=== PATIENT | female | born 1970 | race Hispanic/Latino ===

== ENCOUNTER 2021-06-29 14:09 | Emergency (ER) | payer OTHER ==
[~2021-06-29] VITALS: Ht 165.1 cm; Wt 77.1 kg
[2021-06-29 14:32] LABS: HEMATOCRIT 38.3 % (36-48); LYMPHOCYTES % (AUTO) 24.4 % (21.0-51.0); MEAN CORPUSCULAR HEMOGLOBIN 28.6 pg (27.0-33.0); MEAN CORPUSCULAR HGB CONC 32.9 g/dL (32.0-36.0); NEUTROPHILS % (AUTO) 66.3 % (40.0-77.0); PLATELET COUNT (AUTO) 320 K/uL (130-400); RED CELL DISTRIBUTION WIDTH 16.3 % (11.0-15.5); WHITE BLOOD COUNT (AUTO) 9.5 K/uL (4.8-10.8)
[2021-06-29 14:41] LABS: CREATININE 0.8 mg/dL (0.5-1.5); POTASSIUM 3.6 mmol/L (3.5-5.1)
[2021-06-29 14:45] LABS: ALBUMIN 3.4 g/dL (3.5-5.0); BILIRUBIN,TOTAL 0.3 mg/dL (0.2-1.0); TOTAL PROTEIN, SERUM 7.7 g/dL (6.0-8.3)
[2021-06-29] MEDS ORDERED: MORPHINE 2 MG SYG ONE (16:19)
[2021-06-29] MEDS ORDERED: ONDANSETRON 4MG INJ ONE (16:19)
[2021-06-29] MEDS ORDERED: ONDANSETRON 4MG INJ IVP ONE (16:30)
[2021-06-29] MEDS ORDERED: IOHEXOL-350 75 ML VIAL IV ONE (16:34)
[2021-06-29] MEDS ORDERED: METH4TAB3 PO (18:53)
[2021-06-29 18:56] VITALS: BP 143/53
== END 2021-06-29 19:09 | disposition home or self-care (01) ==
LOC: EDH 14:09
DX: M94.0 Chondrocostal junction syndrome [Tietze] (principal); R09.1 Pleurisy; R11.2 Nausea with vomiting, unspecified; R20.0 Anesthesia of skin
CPT/HCPCS: 36415; 71275; 80053; 84484; 85025; 93005; 96374; 96375; 99285; J2405; Q9967

== ENCOUNTER 2022-10-06 12:22 | Emergency (ER) | payer OTHER ==
[~2022-10-06] VITALS: Ht 165.1 cm; Wt 56.7 kg
[~2022-10-06 12:22] MED LIST: METH4TAB3 PO
[2022-10-06 12:59] LABS: EOSINOPHILS % (AUTO) 6.3 % (0.0-8.0); HEMATOCRIT 38.5 % (36-48); LYMPHOCYTES % (AUTO) 41.9 % (21.0-51.0); MEAN CORPUSCULAR HEMOGLOBIN 26.8 pg (27.0-33.0); MEAN CORPUSCULAR HGB CONC 32.7 g/dL (32.0-36.0); MEAN CORPUSCULAR VOLUME 81.9 fL (79-99); MONOCYTES % (AUTO) 6.2 % (3.0-13.0); NEUTROPHILS % (AUTO) 44.2 % (40.0-77.0); PLATELET COUNT (AUTO) 278 K/uL (130-400); RED CELL DISTRIBUTION WIDTH 17.3 % (11.0-15.5); WHITE BLOOD COUNT (AUTO) 8.2 K/uL (4.8-10.8)
[2022-10-06 13:12] LABS: ALBUMIN 3.5 g/dL (3.5-5.0); TOTAL PROTEIN, SERUM 7.8 g/dL (6.0-8.3)
[2022-10-06] MEDS ORDERED: POTASSIUM BICARB/CIT AC 25 MEQ TABLET.EFF PO ONE (14:00)
[2022-10-06 15:39] LABS: AMPHET/METH SCREEN,URINE NEGATIVE (NEGATIVE); BARBITURATE SCREEN, URINE NEGATIVE (NEGATIVE); BENZODIAZEPINES SCREEN,URINE NEGATIVE (NEGATIVE); CANNABINOID SCREEN,URINE NEGATIVE (NEGATIVE); COCAINE SCREEN,URINE POSITIVE (NEGATIVE); OPIATE SCREEN,URINE NEGATIVE (NEGATIVE); PHENCYCLIDINE SCREEN,URINE NEGATIVE (NEGATIVE)
[2022-10-06 15:42] VITALS: BP 141/59
[2022-10-06 16:43] LABS: APPEARANCE,URINE CLEAR (CLEAR); BILIRUBIN,URINE NEGATIVE (NEGATIVE); COLOR,URINE YELLOW (YELLOW); GLUCOSE, URINE (UA) NEGATIVE (NEGATIVE); KETONES,URINE NEGATIVE (NEGATIVE); LEUKOCYTE ESTERASE ,URINE NEGATIVE Leu/uL (NEGATIVE); NITRATE,URINE NEGATIVE (NEGATIVE); OCCULT BLOOD,URINE NEGATIVE (NEGATIVE); PH,URINE 5.5 (5.0-8.0); PROTEIN,URINE NEGATIVE (NEGATIVE); UROBILINOGEN,URINE 0.2 mg/dL (0.2-1.0)
[2022-10-06 16:53] LABS: RBC,URINE 0-1 /HPF (0-1); SQUAMOUS EPITHELIAL CELL,UR FEW /HPF (0-2); WBC,URINE 0-1 /HPF (0-1)
== END 2022-10-06 17:16 | disposition home or self-care (01) ==
LOC: EDH 12:22
DX: M94.0 Chondrocostal junction syndrome [Tietze] (principal); F14.10 Cocaine abuse, uncomplicated; E87.6 Hypokalemia; Z79.899 Other long term (current) drug therapy
CPT/HCPCS: 36415; 71045; 80053; 80305; 81001; 84484; 85025; 93005

== ENCOUNTER 2023-01-21 17:58 | Inpatient (IN) | payer OTHER ==
[~2023-01-21] VITALS: Ht 165.1 cm; Wt 64.6 kg
[2023-01-21 19:58] LABS: BASOPHILS % (AUTO) 0.7 % (0.0-5.0); HEMATOCRIT 39.2 % (36-48); LYMPHOCYTES % (AUTO) 20.1 % (21.0-51.0); MEAN CORPUSCULAR HEMOGLOBIN 26.8 pg (27.0-33.0); MEAN CORPUSCULAR HGB CONC 31.9 g/dL (32.0-36.0); MEAN CORPUSCULAR VOLUME 84.1 fL (79-99); NEUTROPHILS % (AUTO) 69.9 % (40.0-77.0); PLATELET COUNT (AUTO) 248 K/uL (130-400); RED BLOOD CELL COUNT(AUTO) 4.66 MIL/uL (4.00-5.50); RED CELL DISTRIBUTION WIDTH 17.2 % (11.0-15.5); WHITE BLOOD COUNT (AUTO) 6.9 K/uL (4.8-10.8)
[2023-01-21 20:07] LABS: POTASSIUM 3.1 mmol/L (3.5-5.1)
[2023-01-21 20:11] LABS: ALBUMIN 3.4 g/dL (3.5-5.0); TOTAL PROTEIN, SERUM 7.3 g/dL (6.0-8.3)
[2023-01-21 20:24] LABS: INR 0.97 (0.85-1.15); PROTHROMBIN TIME 10.6 SEC (9.6-11.6)
[2023-01-21 20:26] LABS: PARTIAL THROMBOPLASTIN TIME 26.2 SEC (26.3-35.5)
[2023-01-21 20:28] LABS: B-TYPE NATRIURETIC PEPTIDE 15 pg/mL (0-100)
[2023-01-21] MEDS ORDERED: POTASSIUM CHLORIDE 10% ELIXIR 20 MEQ/15 ML UDCUP PO ONE (21:00)
[2023-01-21] MEDS ORDERED: ONDANSETRON 4MG INJ IV PRN (21:30)
[2023-01-21] MEDS ORDERED: MORPHINE 4 MG SYG IV PRN (21:30)
[2023-01-21] MEDS ORDERED: MORPHINE 2 MG SYG IV PRN (21:30)
[2023-01-21] MEDS ORDERED: POTASSIUM CHLORIDE 20MEQ/100ML 100 ML IV PRN (21:30)
[2023-01-21] MEDS ORDERED: ACETAMINOPHEN 325 MG TAB PO PRN ×2 (21:30)
[2023-01-21] MEDS ORDERED: POTASSIUM CHLORIDE 10% ELIXIR 20 MEQ/15 ML UDCUP PO PRN (21:30)
[2023-01-21] MEDS: LACTATED RINGERS 1000ML 1,000 ML IV SCH (22:26)
[2023-01-21 23:49] LABS: APPEARANCE,URINE CLEAR (CLEAR); BILIRUBIN,URINE NEGATIVE (NEGATIVE); COLOR,URINE YELLOW (YELLOW); GLUCOSE, URINE (UA) NEGATIVE (NEGATIVE); KETONES,URINE NEGATIVE (NEGATIVE); LEUKOCYTE ESTERASE ,URINE 75 Leu/uL (NEGATIVE); NITRATE,URINE NEGATIVE (NEGATIVE); OCCULT BLOOD,URINE NEGATIVE (NEGATIVE); PROTEIN,URINE 10 mg/dL (NEGATIVE); UROBILINOGEN,URINE 0.2 mg/dL (0.2-1.0)
[2023-01-21 23:57] LABS: BACTERIA,URINE RARE /HPF (None Seen); MUCUS,URINE RARE LPF (None Seen); SQUAMOUS EPITHELIAL CELL,UR FEW /HPF (0-2)
[2023-01-22 00:45] VITALS: BP 159/74
[2023-01-22 04:00] VITALS: BP 152/99
[2023-01-22 05:27] LABS: BASOPHILS % (AUTO) 1.1 % (0.0-5.0); EOSINOPHILS % (AUTO) 3.1 % (0.0-8.0); HEMATOCRIT 36.4 % (36-48); LYMPHOCYTES % (AUTO) 38.7 % (21.0-51.0); MEAN CORPUSCULAR HEMOGLOBIN 26.5 pg (27.0-33.0); MEAN CORPUSCULAR HGB CONC 31.6 g/dL (32.0-36.0); MEAN CORPUSCULAR VOLUME 83.9 fL (79-99); MONOCYTES % (AUTO) 8.9 % (3.0-13.0); NEUTROPHILS % (AUTO) 47.7 % (40.0-77.0); PLATELET COUNT (AUTO) 247 K/uL (130-400); RED BLOOD CELL COUNT(AUTO) 4.34 MIL/uL (4.00-5.50); RED CELL DISTRIBUTION WIDTH 16.9 % (11.0-15.5); WHITE BLOOD COUNT (AUTO) 6.4 K/uL (4.8-10.8)
[2023-01-22 05:53] LABS: CREATININE 0.8 mg/dL (0.5-1.5); MAGNESIUM 1.6 mg/dL (1.80-2.40); PHOSPHORUS 3.5 mg/dL (2.5-4.9); POTASSIUM 3.8 mmol/L (3.5-5.1); THYROID STIMULATING HORMONE 0.54 uIU/mL (0.36-3.74)
[2023-01-22] MEDS: MAGNESIUM 2GM PREMIX 50ML 50 ML IV PRN (06:00)
[2023-01-22 08:00] VITALS: BP 162/97
[2023-01-22] MEDS: ASPIRIN 81MG CHEW TAB PO SCH (09:21)
[2023-01-22] MEDS: ENOXAPARIN SODIUM 40 MG/0.4 ML SYRINGE SQ SCH (09:22)
[2023-01-22] MEDS: CLOPIDOGREL 75MG TAB PO SCH (09:22)
[2023-01-22] MEDS: FAMOTIDINE 20MG VIAL IV SCH ×2 (09:22→20:19)
[2023-01-22] MEDS ORDERED: FOLIC ACID 1 MG, THIAMINE HCL 100 MG in 0.9%NACL 1000ML 1,000 ML IV SCH (10:30)
[2023-01-22 12:00] VITALS: BP 145/76
[2023-01-22] MEDS ORDERED: LORAZEPAM 2 MG/ML 1 ML VIAL IVP PRN (12:30)
[2023-01-22] MEDS ORDERED: PHARMACY COMMUNICATION MISC PRN (12:30)
[2023-01-22] MEDS: CHLORDIAZEPOXIDE HCL 25 MG CAP PO PRN (12:52)
[2023-01-22 16:00] VITALS: BP 136/78
[2023-01-22] MEDS: LACTATED RINGERS 1000ML 1,000 ML IV SCH ×2 (17:27→20:27)
[2023-01-22 20:00] VITALS: BP 149/73
[2023-01-22] MEDS ORDERED: ATORVASTATIN 40 MG TABLET PO SCH (21:00)
[2023-01-23] VITALS: BP 186/73
[2023-01-23] MEDS: CHLORDIAZEPOXIDE HCL 25 MG CAP PO PRN ×3 (00:38→08:35)
[2023-01-23 02:19] VITALS: BP 173/73
[2023-01-23 04:00] VITALS: BP 176/83
[2023-01-23 04:38] LABS: BASOPHILS % (AUTO) 1.1 % (0.0-5.0); EOSINOPHILS % (AUTO) 3.5 % (0.0-8.0); HEMATOCRIT 38.7 % (36-48); LYMPHOCYTES % (AUTO) 38.4 % (21.0-51.0); MEAN CORPUSCULAR HEMOGLOBIN 26.5 pg (27.0-33.0); MEAN CORPUSCULAR HGB CONC 31.5 g/dL (32.0-36.0); MEAN CORPUSCULAR VOLUME 83.9 fL (79-99); MONOCYTES % (AUTO) 7.4 % (3.0-13.0); NEUTROPHILS % (AUTO) 49.4 % (40.0-77.0); PLATELET COUNT (AUTO) 264 K/uL (130-400); RED BLOOD CELL COUNT(AUTO) 4.61 MIL/uL (4.00-5.50); RED CELL DISTRIBUTION WIDTH 17.2 % (11.0-15.5); WHITE BLOOD COUNT (AUTO) 6.4 K/uL (4.8-10.8)
[2023-01-23 04:48] LABS: CREATININE 0.7 mg/dL (0.5-1.5); MAGNESIUM 1.9 mg/dL (1.80-2.40); PHOSPHORUS 3.4 mg/dL (2.5-4.9); POTASSIUM 3.4 mmol/L (3.5-5.1)
[2023-01-23] MEDS: KCL 20 MEQ ERTAB PO PRN ×2 (05:35→08:35)
[2023-01-23] MEDS: MAGNESIUM 2GM PREMIX 50ML 50 ML IV PRN (05:36)
[2023-01-23 07:53] VITALS: BP 178/72
[2023-01-23] MEDS: ENOXAPARIN SODIUM 40 MG/0.4 ML SYRINGE SQ SCH (08:34)
[2023-01-23] MEDS: FAMOTIDINE 20MG VIAL IV SCH (08:34)
[2023-01-23] MEDS: ASPIRIN 81MG CHEW TAB PO SCH (08:35)
[2023-01-23] MEDS: CLOPIDOGREL 75MG TAB PO SCH (08:35)
[2023-01-23] MEDS ORDERED: AMLODIPINE 5 MG TAB PO SCH (09:00)
[2023-01-23] MEDS ORDERED: LISINOPRIL 40 MG TABLET PO SCH (09:00)
[2023-01-23 11:36] VITALS: BP 139/77
[2023-01-23] MEDS ORDERED: CLOP-31 PO (14:55)
[2023-01-23] MEDS ORDERED: LISI40TA9 PO (14:55)
[2023-01-23] MEDS ORDERED: ASPI-1005 PO (14:55)
[2023-01-23] MEDS ORDERED: ATOR40TA69 PO (14:55)
[2023-01-23] MEDS ORDERED: AMLO5TAB4 PO (14:55)
[2023-01-23 16:33] VITALS: BP 137/77
== END 2023-01-23 18:25 | disposition home or self-care (01) | DRG 66 ==
LOC: EDH 17:58 → EDHIP 17:59 → 4AH 01-22 00:44
PROVIDERS: ADMIT Internal Medicine; ATTEND Internal Medicine
DX: I63.9 Cerebral infarction, unspecified (principal); E87.6 Hypokalemia; F14.10 Cocaine abuse, uncomplicated; F10.10 Alcohol abuse, uncomplicated; I10 Essential (primary) hypertension; Z79.899 Other long term (current) drug therapy; Z82.49 Family history of ischemic heart disease and other diseases of the circulatory system; Z86.73 Personal history of transient ischemic attack (TIA), and cerebral infarction without residual deficits; Z79.02 Long term (current) use of antithrombotics/antiplatelets
CPT/HCPCS: 36415; 70450; 70551; 71045; 80048; 80053; 80061; 81001; 82550; 82948; 83721; 83735; 83880; 84100; 84443; 84484; 85025; 85610; 85730; 87088; 92522; 92610; 93005; 93306; 93356; 93880; 97039; G0378; J1650; J3411; J3475; J3490; J7030